=== PATIENT | male | born 1955 | race African-American/Black ===

== ENCOUNTER 2019-09-23 12:17 | Observation (INO) ==
[2019-09-23] MEDS ORDERED: MORPHINE 4 MG/1 ML VIAL IV STA (13:17)
[2019-09-23] MEDS ORDERED: ONDANSETRON 4 MG/2 ML VIAL IV STA (13:17)
[2019-09-23] MEDS ORDERED: ALUM/MAG/SIMETH/LIDO VISC 1:1 30 ML BOTTLE PO STA (13:17)
[2019-09-23] MEDS ORDERED: ASPIRIN 325 MG TABLET PO STA (13:17)
[2019-09-23] MEDS ORDERED: NITROGLYCERIN 2% OINT 1 INCH/GM PACK TOP STA (13:17)
[2019-09-23 13:22] LABS: Basophils % 0.7 % (0.0-0.8); Eosinophils # 0.2 10*3/uL (0.0-0.87); Eosinophils % 2.7 % (0.00-10.9); Hematocrit 41.2 VOL% (42.0-52.0); Hemoglobin 13.4 GM/DL (14.0-18.0); Immature Granulocytes % 0.2 %; Immature Granulocytes Absolute 0.01 #; Lymphocytes # 1.4 10*3/uL (1.4-4.0); Lymphocytes % 24.7 % (21.2-54.2); Mean Corpuscular HGB Conc 32.5 GM/DL (32-36); Mean Corpuscular Volume 85.5 FL (87-102); Mean Platelet Volume 9.5 FL (9.6-12.0); Monocytes % 9.3 % (1.7-12.7); Neutrophils % 62.4 % (38.7-73.9); Platelet Count 211 T/CUMM (130-400); Red Blood Count 4.82 MC/CUMM (3.8-5.5); Red Cell Distribution Width 12.2 % (9.3-17.3); White Blood Count 5.5 T/CUMM (4-12)
[2019-09-23 13:30] LABS: INR 0.9; PT Patient Result 9.4 SECS (9.6-12.2)
[2019-09-23 14:01] LABS: Albumin 3.8 G/DL (3.4-5.0); Bilirubin,Total 0.8 MG/DL (0.2-1.0); Total Protein 7.5 G/DL (6.4-8.3)
[2019-09-23] MEDS ORDERED: MAGNESIUM SULF RIDER 2 GM in PREMIX 1 EACH IV PRN (14:46)
[2019-09-23] MEDS ORDERED: ZALEPLON 5 MG CAPSULE PO PRN (14:46)
[2019-09-23] MEDS ORDERED: NITROGLYCERIN SL 0.4 MG TABLET SL PRN (14:46)
[2019-09-23] MEDS ORDERED: oxyCODONE/ACETAMINOPHEN 5-325 MG TABLET PO PRN (14:46)
[2019-09-23] MEDS ORDERED: BISACODYL 5 MG TABLET PO PRN (14:46)
[2019-09-23] MEDS ORDERED: MAGNESIUM HYDROXIDE SUSP 30 ML UDCUP PO PRN (14:46)
[2019-09-23] MEDS ORDERED: ALUM/MAG/SIMETH/LIDO VISC 1:1 30 ML BOTTLE PO PRN (14:46)
[2019-09-23] MEDS ORDERED: MAGNESIUM SULF RIDER 4 GM in PREMIX 1 EACH IV PRN (14:46)
[2019-09-23] MEDS ORDERED: POTASSIUM CHLORIDE 20 MEQ TABLET PO PRN ×2 (14:46)
[2019-09-23] MEDS ORDERED: DEXTROSE 50% 25 GM/50 ML VIAL IV PRN (14:50)
[2019-09-23] MEDS ORDERED: GLUCAGON 1 MG VIAL IM PRN (14:50)
[2019-09-23] MEDS ORDERED: lisinopriL 10 MG TABLET PO STA (14:57)
[2019-09-23] MEDS ORDERED: ENOXAPARIN 40 MG/0.4 ML SYRINGE SUBCUT SCH (15:00)
[2019-09-23 17:49] LABS: Troponin I 0.047 NG/ML (0.00-0.045)
[2019-09-23] MEDS: INSULIN REGULAR 100 UNIT/ML SUBCUT SCH ×2 (18:12→20:55)
[2019-09-23] MEDS: ACETAMINOPHEN 325 MG TABLET PO PRN (19:32)
[2019-09-23 20:03] LABS: Troponin I 0.045 NG/ML (0.00-0.045)
[2019-09-23] MEDS: RANITIDINE 150 MG TABLET PO SCH (20:55)
[2019-09-23] MEDS: carvediloL 6.25 MG TABLET PO SCH (20:55)
[2019-09-23] MEDS ORDERED: ROSUVASTATIN 20 MG TABLET PO SCH (21:00)
[2019-09-24 06:23] LABS: Basophils % 0.6 % (0.0-0.8); Eosinophils # 0.2 10*3/uL (0.0-0.87); Eosinophils % 3.6 % (0.00-10.9); Hematocrit 36.5 VOL% (42.0-52.0); Hemoglobin 11.5 GM/DL (14.0-18.0); Immature Granulocytes % 0.2 %; Immature Granulocytes Absolute 0.01 #; Lymphocytes # 1.4 10*3/uL (1.4-4.0); Lymphocytes % 27.7 % (21.2-54.2); Mean Corpuscular HGB Conc 31.5 GM/DL (32-36); Mean Corpuscular Volume 86.5 FL (87-102); Mean Platelet Volume 9.6 FL (9.6-12.0); Monocytes % 12.2 % (1.7-12.7); Neutrophils % 55.7 % (38.7-73.9); Platelet Count 184 T/CUMM (130-400); Red Blood Count 4.22 MC/CUMM (3.8-5.5)
[2019-09-24 07:02] LABS: Risk Ratio 2.58; VLDL CHOLESTEROL 17.2 MG/DL
[2019-09-24 07:19] LABS: Albumin 3.4 G/DL (3.4-5.0); Bilirubin,Total 0.7 MG/DL (0.2-1.0); Calcium 8.4 MG/DL (8.5-10.1); Osmolality,Calculated 279.7 MOS/KG (273-304); Total Protein 6.6 G/DL (6.4-8.3)
[2019-09-24 08:30] VITALS: BP 106/64
[2019-09-24] MEDS ORDERED: lisinopriL 5 MG TABLET PO SCH (09:00)
[2019-09-24] MEDS ORDERED: ASPIRIN EC 81 MG TABLET PO SCH (09:00)
[2019-09-24] MEDS: RANITIDINE 150 MG TABLET PO SCH (09:26)
[2019-09-24] MEDS: carvediloL 6.25 MG TABLET PO SCH (09:26)
[2019-09-24] MEDS: ACETAMINOPHEN 325 MG TABLET PO PRN (09:26)
[2019-09-24] MEDS: INSULIN REGULAR 100 UNIT/ML SUBCUT SCH (10:02)
== END 2019-09-24 11:00 | disposition home or self-care (01) ==
LOC: N.EDINP 12:17 → N.ED 12:17 → SUATTDRO 14:46 → N.TELEN 16:02
PROVIDERS: ADMIT Nurse Practitioner; ATTEND Internal Medicine